=== PATIENT | female | born 1965 | race Caucasian/White ===

== ENCOUNTER → 2020-01-18 12:24 | Outpatient (BNVA) | payer SELFPAY | PROVIDERS: Family Provider Nurse Practitioner Family; PCP Nurse Practitioner Family; Visit Provider Family Medicine | DX: R06.02 Shortness of breath (principal); J45.909 Unspecified asthma, uncomplicated | CPT/HCPCS: 71046; 84439; 84443; 84481 ==

== ENCOUNTER 2020-01-22 07:51 | Outpatient (CLI) | payer SELFPAY ==
--- NOTE | 2020-01-22 08:00 | US_ITS ---
WS: [id number] ULTRASOUND THYROID TECHNIQUE: Ultrasound of the thyroid. CLINICAL INFORMATION: enlarged thyroid; hypothyroid COMPARISON: None. FINDINGS: Thyroid: Right and left thyroid lobes are normal in size and heterogeneous in echotexture. No thyroid nodules are present. Right thyroid lobe: 4.9 cm x 1.6 cm x 1.5 cm Left thyroid lobe: 4.1 cm x 1.3 cm x 1.4 cm. Isthmus: 0.3 mm. Cervical lymphadenopathy: Diffusely prominent cervical lymph nodes bilaterally. Largest measures 2.2 x 0.7 x 1.3 cm on the right nonspecific but may be reactive. US/US thyroid [id number] IMPRESSION: 1. Heterogeneous thyroid lobes bilaterally. No thyroid nodules. 2. A few slight prominent cervical lymph nodes bilaterally nonspecific but may be reactive. 6
== END 2020-01-22 07:52 | disposition home or self-care (01) ==
LOC: RAD 08:02
PROVIDERS: PCP Nurse Practitioner Family; Visit Provider Nurse Practitioner Family
DX: E04.9 Nontoxic goiter, unspecified (principal)
CPT/HCPCS: 76536